=== PATIENT | male | born 1960 | race Caucasian/White ===

== ENCOUNTER 2016-10-09 23:48 | Emergency (ER) | payer SELFPAY ==
[~2016-10-09 23:48] MED LIST: CYCL-36 PO; IBUP-238 PO; Z.0.NO CURRENT MEDS
[2016-10-10] MEDS ORDERED: SODIUM CHLORIDE 0.9% FLUSH 10 ML FLUSH IVF PRN
[2016-10-10 00:04] VITALS: PULSE 55; RESP 16; O2SAT 97
--- NOTE | 2016-10-10 00:07 | PD ---
HPI Chief Complaint: OD/ Ingestion Time Seen by Provider: 23:56 Travel History International Travel<30 days: No Contact w/Intl Traveler<30days: No Traveled to known affect area: No History of Present Illness HPI 56-year-old male with history of marijuana use, presents to the ER today brought in by EMS because he states that he had used heroin tonight, smoked it, and was found at the doorway of a friend's house, unresponsive. EMS gave him Narcan and with good response. He states that he had last used heroin a few hours ago. He denies any other issues. Modifying Factors: None Associated Signs & Symptoms: Heroin overdose Risk Factors: Substance use PFSH Social History Tobacco Use: Yes Allergies-Medications (Allergen,Severity, Reaction): Coded Allergies: No Known Allergies (Verified , 10/10/16) Reported Meds & Prescriptions Reported Meds & Active Scripts Active Review of Systems Except as stated in HPI: all other systems reviewed are Neg Physical Exam Narrative GENERAL: Well-developed middle age white male patient who appears older than stated age. Awake and oriented 3. In mild distress. Mildly agitated. SKIN: Focused skin assessment warm/dry. HEAD: Atraumatic. Normocephalic. EYES: Pupils equal and round. No scleral icterus. No injection or drainage. ENT: No nasal bleeding or discharge. Mucous membranes pink and moist. NECK: Trachea midline. No JVD. CARDIOVASCULAR: Regular rate and rhythm. No murmur appreciated. RESPIRATORY: No accessory muscle use. Clear to auscultation. Breath sounds equal bilaterally. GASTROINTESTINAL: Abdomen soft, non-tender, nondistended. Hepatic and splenic margins not palpable. MUSCULOSKELETAL: No obvious deformities. No clubbing. No cyanosis. No edema. NEUROLOGICAL: Awake and alert. No obvious cranial nerve deficits. Motor grossly within normal limits. Normal speech. PSYCHIATRIC: Appropriate mood and affect; insight and judgment normal. Data Data Last Documented VS Vital Signs Date Time Temp Pulse Resp B/P Pulse Ox O2 Delivery O2 Flow Rate FiO2 10/10/16 00:04 55 16 97 Room Air Orders Electrocardiogram (10/09/16 23:56) Complete Blood Count With Diff (10/09/16 23:56) Comprehensive Metabolic Panel (10/09/16 23:56) Iv Access Insert/Monitor (10/09/16 23:56) Ecg Monitoring (10/09/16 23:56) Oximetry (10/09/16 23:56) Sodium Chloride 0.9% Flush (Ns Flush) (10/10/16 00:00) Drug Screen, Random Urine (10/09/16 23:56) Alcohol (Ethanol) (10/09/16 23:56) Salicylates (Aspirin) (10/09/16 23:56) Tylenol (Acetaminophen) (10/09/16 23:56) Morphine Inj (Morphine Inj) (10/10/16 01:45) Ondansetron Inj (Zofran Inj) (10/10/16 01:45) Labs Laboratory Tests Test 10/10/16 00:20 White Blood Count 5.8 TH/MM3 Red Blood Count 4.77 MIL/MM3 Hemoglobin 14.3 GM/DL Hematocrit 41.9 % Mean Corpuscular Volume 87.9 FL Mean Corpuscular Hemoglobin 29.9 PG Mean Corpuscular Hemoglobin 34.0 % Concent Red Cell Distribution Width 13.6 % Platelet Count 207 TH/MM3 Mean Platelet Volume 7.9 FL Neutrophils (%) (Auto) 20.2 % Lymphocytes (%) (Auto) 70.0 % Monocytes (%) (Auto) 6.3 % Eosinophils (%) (Auto) 2.7 % Basophils (%) (Auto) 0.8 % Neutrophils # (Auto) 1.2 TH/MM3 Lymphocytes # (Auto) 4.1 TH/MM3 Monocytes # (Auto) 0.4 TH/MM3 Eosinophils # (Auto) 0.2 TH/MM3 Basophils # (Auto) 0.0 TH/MM3 CBC Comment AUTO DIFF Differential Comment AUTO DIFF CONFIRMED Sodium Level 142 MEQ/L Potassium Level 3.6 MEQ/L Chloride Level 109 MEQ/L Carbon Dioxide Level 22.8 MEQ/L Anion Gap 10 MEQ/L Blood Urea Nitrogen 7 MG/DL Creatinine 0.97 MG/DL Estimat Glomerular Filtration 80 ML/MIN Rate Random Glucose 87 MG/DL Calcium Level 8.6 MG/DL Total Bilirubin 0.2 MG/DL Aspartate Amino Transf 37 U/L (AST/SGOT) Alanine Aminotransferase 29 U/L (ALT/SGPT) Alkaline Phosphatase 83 U/L Total Protein 7.6 GM/DL Albumin 3.7 GM/DL Salicylates Level 2.6 MG/DL Acetaminophen Level LESS THAN 2.0 MCG/ML Ethyl Alcohol Level 235 MG/DL [facility] Medical Decision Making Medical Screen Exam Complete: Yes Emergency Medical Condition: Yes Medical Record Reviewed: Yes Interpretation(s) Laboratory Tests Test 10/10/16 00:20 Lymphocytes (%) (Auto) 70.0 % (9.0-44.0) Neutrophils # (Auto) 1.2 TH/MM3 (1.8-7.7) Chloride Level 109 MEQ/L (98-107) Estimat Glomerular Filtration 80 ML/MIN (>89) Rate Salicylates Level 2.6 MG/DL (2.8-20.0) Acetaminophen Level LESS THAN 2.0 MCG/ML (10.0-30.0) Ethyl Alcohol Level 235 MG/DL (0-5) Differential Diagnosis Apparent overdoserule out coingestions versus metabolic issues Narrative Course Vital signs are stable in the ER. Lab work did not indicate other coingestions except for alcohol. At this point, my plan would be to have him sleep it off and observe the ER until sober. Patient states he had taken the hair when several hours ago and I suspect that we should be over to release him after several hours of observation in the ER without further issues. Plan was discussed with patient and he states understanding. Diagnosis Primary Impression: Opiate overdose Additional Impression: Alcohol intoxication Disposition: 01 DISCHARGE HOME Condition: Stable Daniel Shin MD October 10, 2016 00:06
[2016-10-10 00:33] LABS: AUTOMATED NEUTROPHIL # 1.2 TH/MM3 (1.8-7.7); BASOPHIL % 0.8 % (0.0-2.0); EOSINOPHIL # 0.2 TH/MM3 (0-0.4); EOSINOPHIL % 2.7 % (0.0-4.0); HEMATOCRIT 41.9 % (39.0-51.0); LYMPHOCYTE # 4.1 TH/MM3 (1.0-4.8); MEAN CELL VOLUME 87.9 FL (80.0-100.0); MEAN CORPUSCULAR HEMOGLOBIN 29.9 PG (27.0-34.0); MONO % 6.3 % (0.0-8.0); NEUT % 20.2 % (16.0-70.0); PLATELET COUNT 207 TH/MM3 (150-450); RED BLOOD COUNT 4.77 MIL/MM3 (4.50-5.90); RED CELL DISTRIBUTION WIDTH 13.6 % (11.6-17.2); WHITE BLOOD COUNT 5.8 TH/MM3 (4.0-11.0)
[2016-10-10 00:41] LABS: HEMO FLAGS AUTO DIFF
[2016-10-10 01:06] LABS: ACETAMINOPHEN LESS THAN 2.0 MCG/ML (10.0-30.0); ANION GAP 10 MEQ/L (5-15); AST (GOT) 37 U/L (15-37); BICARBONATE 22.8 MEQ/L (21.0-32.0); BLOOD UREA NITROGEN 7 MG/DL (7-18); CHLORIDE 109 MEQ/L (98-107); GLOMERULAR FILTRATION RATE 80 ML/MIN (>89); POTASSIUM 3.6 MEQ/L (3.5-5.1); SODIUM (NA) 142 MEQ/L (136-145)
[2016-10-10 01:10] LABS: ALKALINE PHOSPHATASE 83 U/L (45-117); ALT (GPT) 29 U/L (12-78); TOTAL BILIRUBIN ADULT 0.2 MG/DL (0.2-1.0)
[2016-10-10 01:28] LABS: SCAN/DIFF AUTO DIFF CONFIRMED
[2016-10-10] MEDS ORDERED: MORPHINE SULFATE 4 MG/ML INJ IV PUSH ONE (01:45)
[2016-10-10] MEDS ORDERED: ONDANSETRON HCL 4 MG/2 ML VIAL IV PUSH ONE (01:45)
[2016-10-10 04:26] VITALS: BP 115/81; PULSE 68; RESP 18; O2SAT 100
--- NOTE | 2016-10-10 16:40 | EKG ---
Date Performed: 10/10/2016 Time Performed: 00:32:32 PTAGE: 56 years EKG: SINUS BRADYCARDIA MODERATE INTRAVENTRICULAR CONDUCTION DELAY BORDERLINE ECG NO PREVIOUS TRACING DOCTOR: Valentine Jimenez Interpretating Date/Time 10/10/2016 16:39:54
== END 2016-10-10 04:32 | disposition home or self-care (01) ==
LOC: NEPE 23:48
DX: T40.1X1A Poisoning by heroin, accidental (unintentional), initial encounter (principal); R00.1 Bradycardia, unspecified; F10.129 Alcohol abuse with intoxication, unspecified; Y90.7 Blood alcohol level of 200-239 mg/100 ml
CPT/HCPCS: 80053; 80307; 85025; 93005

== ENCOUNTER 2017-06-15 21:50 | Emergency (ER) | payer SELFPAY ==
[~2017-06-15] VITALS: Ht 175.3 cm; Wt 66.4 kg
[2017-06-15 21:54] VITALS: BP 153/78; PULSE 85; RESP 16; TEMP 98.1; O2SAT 85
--- NOTE | 2017-06-15 23:19 | PD ---
HPI . Foreign body Chief Complaint: Foreign Body Time Seen by Provider: 22:54 Travel History International Travel<30 days: No Contact w/Intl Traveler<30days: No Traveled to known affect area: No History of Present Illness HPI This patient presents with a chief complaint of a needle in his right AC vein. He states that he was shooting up Dilaudid and the needle broke. He believes that there is a 1/2 inch needle in his right AC vein. This occurred just prior to arrival. His discomfort is very mild. There are no modifying factors. PFSH Past Medical History Medical History: Denies Significant Hx Diminished Hearing: No Immunizations Current: Yes Tetanus Vaccination: Never Vaccinated Influenza Vaccination: No Past Surgical History Surgical History: No Previous Surgery Social History Alcohol Use: Yes Tobacco Use: Yes Substance Use: Yes (DILAUDID ) Allergies-Medications (Allergen,Severity, Reaction): Coded Allergies: No Known Allergies (Verified , 10/10/16) Reported Meds & Prescriptions Reported Meds & Active Scripts Active Review of Systems Except as stated in HPI: all other systems reviewed are Neg Physical Exam Narrative GENERAL: Awake and alert and in no acute distress. SKIN: Warm and dry. I cannot palpate a foreign body in the vein of the right AC vein. HEAD: Normocephalic/atraumatic. EYES: Pupils are equal. Extraocular movements are intact. NECK: Normal range of motion. CARDIOVASCULAR: Regular rate and rhythm. RESPIRATORY: Nonlabored respirations. MUSCULOSKELETAL: Atraumatic. NEUROLOGICAL: Nonfocal. PSYCHIATRIC: Appropriate mood and affect. Data Data Last Documented VS Vital Signs Date Time Temp Pulse Resp B/P (MAP) Pulse Ox O2 Delivery O2 Flow Rate FiO2 06/15/17 21:54 98.1 85 16 153/78 (103) 85 Room Air Orders Orders Elbow, Limited (Ap&Lat) (06/15/17 22:57) MDM Medical Decision Making Medical Screen Exam Complete: Yes Emergency Medical Condition: Yes Differential Diagnosis My differential diagnosis of retained foreign body includes but is not limited to subcutaneous foreign body, intravenous foreign body, and embolized foreign body Narrative Course This patient presents believing that he has a needle in his right AC vein. I will obtain an x-ray to further evaluate this. X-ray confirms that there is a small cutaneous foreign body. I will not attempt to remove this. The complications removal are felt to be more significant than the benefits. Diagnosis Primary Impression: Foreign body in right upper extremity Qualified Codes: S40.851A - Superficial foreign body of right upper arm, initial encounter Patient Instructions: General Instructions, Rectal Foreign Body (ED) Additional Instructions: This will either work its way out or cause you no further problems. Disposition: 01 DISCHARGE HOME Condition: Stable Iwona Browning MD Jun 15, 2017 23:19
--- NOTE | 2017-06-15 23:53 | RADRPT ---
EXAM DATE/TIME: 06/15/2017 23:13 [facility] COMPARISON: No previous studies available for comparison. INDICATIONS : Evaluate for foreign body. Patient states a needle broke off in his arm today MEDICAL HISTORY : None. SURGICAL HISTORY : None. ENCOUNTER: Initial ACUITY: 1 day PAIN SCORE: 3/10 LOCATION: Right anterior elbow FINDINGS: Two view examination of the right elbow demonstrates no soft tissue swelling, joint effusion, fractur e or dislocation. Bony mineralization is normal. In the soft tissues of the antecubital region, as seen on lateral view, there is a linear thin metallic density measuring millimeters, characteristic o f needle fragment. CONCLUSION: Metallic foreign body in the anterior elbow soft tissues characteristic of a needle fragment. Drew Arvizu MD on June 15, 2017 at 23:50 Board Certified Radiologist. This report was verified electronically.
== END 2017-06-15 23:57 | disposition home or self-care (01) ==
LOC: NEPC 21:50
DX: S40.851A Superficial foreign body of right upper arm, initial encounter (principal); W45.8XXA Other foreign body or object entering through skin, initial encounter; Z72.0 Tobacco use
CPT/HCPCS: 73070; 99283